=== PATIENT | female | born 1965 | race African-American/Black ===

== ENCOUNTER 2021-03-14 15:31 | Emergency (ER) | payer OTHER ==
[~2021-03-14] VITALS: Ht 167.6 cm; Wt 77.1 kg
[2021-03-14 16:24] VITALS: BP 141/83
== END 2021-03-14 16:25 | disposition home or self-care (01) ==
LOC: ER 15:31
DX: S00.93XA Contusion of unspecified part of head, initial encounter (principal); M54.5 Low back pain; M54.2 Cervicalgia; V89.2XXA Person injured in unspecified motor-vehicle accident, traffic, initial encounter; Y93.89 Activity, other specified; Y92.89 Other specified places as the place of occurrence of the external cause; Y99.8 Other external cause status